=== PATIENT | male | born 1940 | race Asian ===

== ENCOUNTER 2017-06-12 22:22 | Inpatient (IN) | payer OTHER ==
[~2017-06-12] VITALS: Ht 162.6 cm; Wt 48.1 kg
[~2017-06-12 22:22] MED LIST: MOTRIN
[2017-06-12] MEDS ORDERED: SODIUM CHLORIDE 0.9% 1,000 ML IV ONE ×2 (23:05)
[2017-06-12] MEDS ORDERED: ONDANSETRON HCL 4MG/2ML VIAL IV STA ×2 (23:05)
[2017-06-12 23:34] LABS: BASOPHILS % 0.7 % (0.0-2.0); EOSINOPHILS % 4.1 % (0.0-5.0); HEMATOCRIT. 36.6 % (42.0-52.0); HEMOGLOBIN. 12.3 g/dL (14.0-18.0); LYMPHOCYTES % 14.4 % (20.0-50.0); MEAN CORPUSCULAR HEMOGLOBIN 31.2 pg (28.0-32.0); MEAN CORPUSCULAR VOLUME 92.5 fL (80.0-94.0); MEAN PLATELET VOLUME 8.3 fl (7.4-10.4); MONOCYTES % 7.4 % (2.0-8.0); NEUTROPHILS % 73.4 % (40.0-76.0); PLATELET 271 x1000/uL (130-400); RED BLOOD CELL COUNT 3.96 mill/uL (4.7-6.1); RED CELL DISTRIBUTION WIDTH 14.4 % (11.6-14.6)
[2017-06-12 23:39] LABS: INR 1.1
[2017-06-12 23:43] LABS: AMMONIA 24 uMol/L (<32)
[2017-06-12 23:48] LABS: CARBON DIOXIDE 23 mEq/L (21-32); CHLORIDE 115 mEq/L (98-107); ETHANOL BLOOD < 10 mg/dL; TROPONIN I 0.02 ng/mL (0.00-0.04)
[2017-06-12 23:53] LABS: BETA HYDROXYBUTYRATE 0.5 mMol/L (0.0-0.3)
[2017-06-12 23:53] LABS: BG BASE EXCESS -1.9 mmol/L (-2.0-2.0); BG CARBOXYHEMOGLOBIN 0.2 % (0.5-1.5); BG DEOXYHEMOGLOBIN 4.5 % (0.0-5.0); BG FRACTION INSPIRED OXYGEN 21; BG HCO3 ACT 22.5 mmol/L (22.0-26.0); BG METHEMOGLOBIN 0.3 % (0.0-1.5); BG OXYGEN SATURATION 95.5 % (92.0-98.5); BG PCO2 37.1 mmHg (35.0-45.0); BG PH 7.401 (7.350-7.450); BG PO2 80.4 mmHg (75.0-100.0); BG SAMPLE SITE LEFT RADIAL; BG TOTAL HEMOGLOBIN 12.6 g/dL (12.0-18.0); BG VENT MODE ROOM AIR
[2017-06-13 01:11] LABS: CLARITY URINE CLEAR (CLEAR); COLOR URINE YELLOW (YELLOW); GLUCOSE URINE NEGATIVE (NEGATIVE); KETONES URINE NEGATIVE (NEGATIVE); LEUKOCYTE ESTERASE URINE NEGATIVE (NEGATIVE); NITRITE URINE NEGATIVE (NEGATIVE); OCCULT BLOOD URINE 2+ (NEGATIVE); PH URINE 5.5 (4.5-8.0); PROTEIN URINE 2+ (NEGATIVE); SPECIFIC GRAVITY URINE 1.022 (1.005-1.030); UROBILINOGEN URINE 0.2 E.U./dL (0.2-1.0)
[2017-06-13 01:33] LABS: *AMPHETAMINES SCREEN URINE NEGATIVE (NEGATIVE); *BARBITURATES SCREEN URINE NEGATIVE (NEGATIVE); *BENZODIAZEPINES SCREEN URINE PRESUMTIVE POSITIVE (NEGATIVE); *COCAINE SCREEN URINE NEGATIVE (NEGATIVE); CANNABINOID URINE SCREEN NEGATIVE (NEGATIVE); METHADONE URINE SCREEN NEGATIVE (NEGATIVE); OPIATES URINE SCREEN NEGATIVE (NEGATIVE); PHENCYCLIDINE URINE SCREEN NEGATIVE (NEGATIVE)
[2017-06-13 05:00] VITALS: BP 112/64
[2017-06-13 06:00] VITALS: BP 112/64
[2017-06-13] MEDS ORDERED: ONDANSETRON HCL 4MG/2ML VIAL IV PRN (07:15)
[2017-06-13] MEDS: OMEPRAZOLE 20MG CAPSULE EXTENDED RELEASE PO SCH (07:15)
[2017-06-13 08:00] VITALS: BP 110/57
[2017-06-13] MEDS ORDERED: PNEUMOCOCCAL 23-VAL P-SAC VAC 0.5 ML IM ONE (08:15)
[2017-06-13] MEDS: ASPIRIN 325MG EC TABLET PO SCH (09:12)
[2017-06-13] MEDS: THIAMINE HCL 100MG TABLET PO SCH (09:42)
[2017-06-13] MEDS: FOLIC ACID 1MG TABLET PO SCH (09:42)
[2017-06-13] MEDS: MULTIVITAMINS,THER W-MINERALS TABLET PO SCH (09:42)
[2017-06-13 10:47] LABS: T4 FREE 0.88 ng/dL (0.76-1.46)
[2017-06-13 10:51] LABS: AMMONIA 14 uMol/L (<32)
[2017-06-13 11:35] LABS: VITAMIN B12 SERUM 475 pg/mL (211-911)
[2017-06-13 11:37] LABS: FOLIC ACID (FOLATE) SERUM > 20.00 ng/mL (>5.38)
[2017-06-13 12:00] VITALS: BP 101/59
[2017-06-13] MEDS: ENOXAPARIN 30MG/0.3ML SYR SUBCUT SCH (12:50)
[2017-06-13 15:16] LABS: HEPATITIS B SURFACE ANTIGEN NEGATIVE
[2017-06-13 15:44] LABS: HEPATITIS B CORE AB IGM NEGATIVE
[2017-06-13 15:46] LABS: HEPATITIS A AB IGM NEGATIVE (NEGATIVE)
[2017-06-13 16:00] VITALS: BP 102/70
[2017-06-13 20:00] VITALS: BP 105/51
[2017-06-13] MEDS: HYDROCODONE/ACETAMINOPHEN 10/325MG TABLET PO PRN (22:11)
[2017-06-14] VITALS: BP 111/63
[2017-06-14 04:00] VITALS: BP 93/57
[2017-06-14] MEDS: OMEPRAZOLE 20MG CAPSULE EXTENDED RELEASE PO SCH (06:10)
[2017-06-14] MEDS: ENOXAPARIN 30MG/0.3ML SYR SUBCUT SCH (08:08)
[2017-06-14] MEDS: ASPIRIN 325MG EC TABLET PO SCH (08:09)
[2017-06-14] MEDS: MULTIVITAMINS,THER W-MINERALS TABLET PO SCH (08:09)
[2017-06-14] MEDS: FOLIC ACID 1MG TABLET PO SCH (08:09)
[2017-06-14] MEDS: THIAMINE HCL 100MG TABLET PO SCH (08:09)
[2017-06-14 08:30] VITALS: BP 116/83
[2017-06-14] MEDS ORDERED: ENOXAPARIN 40MG/0.4ML SYR SUBCUT SCH (09:00)
[2017-06-14 12:00] VITALS: BP 84/43
[2017-06-14 16:00] VITALS: BP 113/65
[2017-06-14 20:00] VITALS: BP 98/52
[2017-06-15] VITALS: BP 91/56
[2017-06-15 04:00] VITALS: BP 113/60
[2017-06-15] MEDS: OMEPRAZOLE 20MG CAPSULE EXTENDED RELEASE PO SCH (06:20)
[2017-06-15 08:00] VITALS: BP 116/65
[2017-06-15] MEDS: MULTIVITAMINS,THER W-MINERALS TABLET PO SCH (08:06)
[2017-06-15] MEDS: ASPIRIN 325MG EC TABLET PO SCH (08:06)
[2017-06-15] MEDS: THIAMINE HCL 100MG TABLET PO SCH (08:06)
[2017-06-15] MEDS: ENOXAPARIN 30MG/0.3ML SYR SUBCUT SCH (08:06)
[2017-06-15] MEDS: FOLIC ACID 1MG TABLET PO SCH (08:06)
[2017-06-15 09:12] LABS: CARBON DIOXIDE 27 mEq/L (21-32); CHLORIDE 105 mEq/L (98-107)
[2017-06-15] MEDS: MUPIROCIN 2% OINT 22GM TOP SCH (09:13)
[2017-06-15 12:00] VITALS: BP 110/82
[2017-06-15 16:00] VITALS: BP 120/58
[2017-06-15 20:00] VITALS: BP 102/60
[2017-06-15] MEDS: ZOLPIDEM TARTRATE 5MG TABLET PO PRN (21:29)
[2017-06-16] VITALS: BP 99/55
[2017-06-16 04:00] VITALS: BP 100/54
[2017-06-16 05:29] LABS: BASOPHILS % 0.9 % (0.0-2.0); EOSINOPHILS % 6.5 % (0.0-5.0); HEMATOCRIT. 34.4 % (42.0-52.0); HEMOGLOBIN. 11.6 g/dL (14.0-18.0); LYMPHOCYTES % 21.5 % (20.0-50.0); MEAN CORPUSCULAR HEMOGLOBIN 31.2 pg (28.0-32.0); MEAN CORPUSCULAR VOLUME 92.4 fL (80.0-94.0); MEAN PLATELET VOLUME 8.8 fl (7.4-10.4); MONOCYTES % 8.2 % (2.0-8.0); NEUTROPHILS % 62.9 % (40.0-76.0); PLATELET 248 x1000/uL (130-400); RED BLOOD CELL COUNT 3.72 mill/uL (4.7-6.1); RED CELL DISTRIBUTION WIDTH 14.1 % (11.6-14.6)
[2017-06-16 06:19] LABS: CHLORIDE 103 mEq/L (98-107)
[2017-06-16 06:27] LABS: CARBON DIOXIDE 28 mEq/L (21-32)
[2017-06-16 08:30] VITALS: BP 107/55
[2017-06-16] MEDS ORDERED: FAMOTIDINE 20MG TABLET PO SCH (09:00)
[2017-06-16] MEDS: ASPIRIN 325MG EC TABLET PO SCH (09:22)
[2017-06-16] MEDS: FOLIC ACID 1MG TABLET PO SCH (09:22)
[2017-06-16] MEDS: MUPIROCIN 2% OINT 22GM TOP SCH (09:23)
[2017-06-16] MEDS: ENOXAPARIN 40MG/0.4ML SYR SUBCUT SCH (09:23)
[2017-06-16] MEDS: THIAMINE HCL 100MG TABLET PO SCH (09:23)
[2017-06-16] MEDS: MULTIVITAMINS,THER W-MINERALS TABLET PO SCH (09:23)
[2017-06-16 12:19] VITALS: BP 105/57
[2017-06-16 16:05] VITALS: BP 103/57
[2017-06-16 20:00] VITALS: BP 122/74
[2017-06-16] MEDS: ZOLPIDEM TARTRATE 5MG TABLET PO PRN (21:50)
[2017-06-16] MEDS: HYDROCODONE/ACETAMINOPHEN 10/325MG TABLET PO PRN (22:00)
[2017-06-17] VITALS (7 sets, daily range): BP systolic 99–114; BP diastolic 50–73
[2017-06-17] MEDS: ENOXAPARIN 40MG/0.4ML SYR SUBCUT SCH (09:15)
[2017-06-17] MEDS: MUPIROCIN 2% OINT 22GM TOP SCH (09:15)
[2017-06-17] MEDS: MULTIVITAMINS,THER W-MINERALS TABLET PO SCH (09:15)
[2017-06-17] MEDS: ASPIRIN 81MG EC TABLET PO SCH (09:15)
[2017-06-17] MEDS: FOLIC ACID 1MG TABLET PO SCH (09:15)
[2017-06-17] MEDS: FAMOTIDINE 20MG TABLET PO SCH (09:15)
[2017-06-17] MEDS: THIAMINE HCL 100MG TABLET PO SCH (09:15)
[2017-06-17] MEDS: ZOLPIDEM TARTRATE 5MG TABLET PO PRN (21:45)
[2017-06-18] VITALS: BP 112/62
[2017-06-18 04:00] VITALS: BP 109/60
[2017-06-18 08:00] VITALS: BP 96/58
[2017-06-18] MEDS: FAMOTIDINE 20MG TABLET PO SCH (09:06)
[2017-06-18] MEDS: FOLIC ACID 1MG TABLET PO SCH (09:06)
[2017-06-18] MEDS: MULTIVITAMINS,THER W-MINERALS TABLET PO SCH (09:06)
[2017-06-18] MEDS: THIAMINE HCL 100MG TABLET PO SCH (09:06)
[2017-06-18] MEDS: ASPIRIN 81MG EC TABLET PO SCH (09:06)
[2017-06-18] MEDS: MUPIROCIN 2% OINT 22GM TOP SCH (09:08)
[2017-06-18] MEDS: ENOXAPARIN 40MG/0.4ML SYR SUBCUT SCH (11:18)
[2017-06-18] MEDS ORDERED: THIA100T72 PO (11:26)
[2017-06-18] MEDS ORDERED: Multivitamins,Ther W-Minerals PO (11:26)
[2017-06-18] MEDS ORDERED: FOLI-43 PO (11:26)
[2017-06-18 12:00] VITALS: BP 108/68
[2017-06-18 14:14] VITALS: BP 119/68
[2017-06-18 16:00] VITALS: BP 115/65
== END 2017-06-18 16:15 | disposition home or self-care (01) | DRG 91 ==
LOC: ER 22:52 → EDBEDREQTM 06-13 01:42 → 5WST 06-13 01:42 → EDBEDREQ 06-13 01:42 → ENRESERV 06-13 04:18
PROVIDERS: ADMIT Internal Medicine; ATTEND Internal Medicine
DX: G92 Toxic encephalopathy (principal); E43 Unspecified severe protein-calorie malnutrition; N17.9 Acute kidney failure, unspecified; N39.0 Urinary tract infection, site not specified; Z68.1 Body mass index [BMI] 19.9 or less, adult; E86.0 Dehydration; R62.7 Adult failure to thrive; D64.9 Anemia, unspecified; F17.210 Nicotine dependence, cigarettes, uncomplicated; G89.29 Other chronic pain; H70.91 Unspecified mastoiditis, right ear; H91.91 Unspecified hearing loss, right ear; I10 Essential (primary) hypertension; K80.20 Calculus of gallbladder without cholecystitis without obstruction; W06.XXXA Fall from bed, initial encounter; M54.5 Low back pain; M25.552 Pain in left hip; F03.90 Unspecified dementia, unspecified severity, without behavioral disturbance, psychotic disturbance, mood disturbance, and anxiety; I95.9 Hypotension, unspecified; R00.1 Bradycardia, unspecified; Z86.61 Personal history of infections of the central nervous system
CPT/HCPCS: 36415; 36600; 70450; 70551; 71010; 73552; 76700; 76881; 80048; 80053; 80305; 80307; 80329; 81001; 82010; 82140; 82375; 82607; 82746; 82805; 83036; 83605; 84439; 84443; 84481; 84484; 85025; 85610; 86703; 86705; 86709; 86803; 87040; 87086; 87340; 90732; 93005; 93306; 96361; 96374; 97116; 97162; 99291; G0482; J1650; J2405; J7030

== ENCOUNTER 2018-01-21 17:12 | Emergency (ER) | payer MEDICARE, MEDICAID ==
[~2018-01-21] VITALS: Ht 165.1 cm; Wt 60.0 kg
[~2018-01-21 17:12] MED LIST changes: +FOLI-43 PO; -MOTRIN; +Multivitamins,Ther W-Minerals PO; +THIA100T72 PO
[2018-01-21] MEDS ORDERED: IBUPROFEN 600MG TABLET PO ONE (22:00)
[2018-01-22 00:30] VITALS: BP 123/89
== END 2018-01-22 00:49 | disposition home or self-care (01) ==
LOC: ER 17:54
DX: M54.5 Low back pain (principal); I10 Essential (primary) hypertension; W10.8XXA Fall (on) (from) other stairs and steps, initial encounter; Y93.89 Activity, other specified; Y92.89 Other specified places as the place of occurrence of the external cause; Y99.8 Other external cause status
CPT/HCPCS: 36415; 71045; 72100; 72131; 80053; 80307; 80329; 82140; 83690; 83880; 85025; 85610; 93005; 99285; G0482; 99284

== ENCOUNTER 2018-01-22 05:13 | Emergency (ER) | payer MEDICARE, MEDICAID ==
[2018-01-22] MEDS ORDERED: IBUPROFEN 600MG TABLET PO STA (09:08)
[2018-01-22 09:32] LABS: BASOPHILS % 0.8 % (0.0-2.0); EOSINOPHILS % 0.7 % (0.0-5.0); HEMATOCRIT. 35.1 % (42.0-52.0); HEMOGLOBIN. 12.2 g/dL (14.0-18.0); LYMPHOCYTES % 8.2 % (20.0-50.0); MEAN CORPUSCULAR HEMOGLOBIN 31.9 pg (28.0-32.0); MEAN PLATELET VOLUME 7.6 fl (7.4-10.4); MONOCYTES % 5.6 % (2.0-8.0); NEUTROPHILS % 84.7 % (40.0-76.0); PLATELET 353 x1000/uL (130-400); RED BLOOD CELL COUNT 3.82 mill/uL (4.7-6.1); RED CELL DISTRIBUTION WIDTH 13.8 % (11.6-14.6)
[2018-01-22 09:36] LABS: CHLORIDE 102 mEq/L (98-107)
[2018-01-22 09:42] LABS: PROTHROMBIN TIME 10.9 sec (9.4-11.6)
[2018-01-22 09:52] LABS: AMMONIA < 25 uMol/L (<32)
[2018-01-22 10:05] LABS: ETHANOL BLOOD < 10 mg/dL
[2018-01-22 13:49] VITALS: BP 123/68
== END 2018-01-22 13:50 | disposition home or self-care (01) ==
LOC: ER 05:13
DX: M54.5 Low back pain (principal); I10 Essential (primary) hypertension; R79.1 Abnormal coagulation profile
CPT/HCPCS: 36415; 71045; 72100; 80053; 80307; 80329; 82140; 83690; 83880; 85025; 85610; 93005; 99285; G0482

== ENCOUNTER 2018-01-23 18:40 | Emergency (ER) | payer MEDICARE, MEDICAID ==
[~2018-01-23] VITALS: Ht 162.6 cm; Wt 53.2 kg
[2018-01-24 03:17] VITALS: BP 112/68
[2018-01-24] MEDS ORDERED: ACETAMINOPHEN 325MG TABLET PO ONE (03:45)
== END 2018-01-24 04:06 | disposition home or self-care (01) ==
LOC: ER 21:07
DX: S80.02XA Contusion of left knee, initial encounter (principal); M54.5 Low back pain; F17.200 Nicotine dependence, unspecified, uncomplicated; G47.00 Insomnia, unspecified; W01.0XXA Fall on same level from slipping, tripping and stumbling without subsequent striking against object, initial encounter; Y93.89 Activity, other specified; Y99.8 Other external cause status; Y92.89 Other specified places as the place of occurrence of the external cause
CPT/HCPCS: 72170; 73562; 99284

== ENCOUNTER 2018-09-05 16:18 | Inpatient (IN) | payer MEDICARE, MEDICAID ==
[~2018-09-05] VITALS: Ht 162.6 cm; Wt 43.1 kg
[2018-09-05 22:15] LABS: CLARITY URINE CLOUDY (CLEAR); COLOR URINE YELLOW (YELLOW); KETONES URINE NEGATIVE (NEGATIVE); LEUKOCYTE ESTERASE URINE 3+ (NEGATIVE); NITRITE URINE POSITIVE (NEGATIVE); OCCULT BLOOD URINE 1+ (NEGATIVE); PROTEIN URINE NEGATIVE (NEGATIVE); SPECIFIC GRAVITY URINE 1.012 (1.005-1.030); UROBILINOGEN URINE 0.2 E.U./dL (0.2-1.0)
[2018-09-05 22:31] LABS: *AMPHETAMINES SCREEN URINE NEGATIVE (NEGATIVE); *COCAINE SCREEN URINE NEGATIVE (NEGATIVE)
[2018-09-05 22:33] LABS: *BARBITURATES SCREEN URINE NEGATIVE (NEGATIVE); *BENZODIAZEPINES SCREEN URINE NEGATIVE (NEGATIVE); CANNABINOID URINE SCREEN NEGATIVE (NEGATIVE); METHADONE URINE SCREEN NEGATIVE (NEGATIVE); OPIATES URINE SCREEN PRESUMTIVE POSITIVE (NEGATIVE); PHENCYCLIDINE URINE SCREEN NEGATIVE (NEGATIVE)
[2018-09-06 02:31] LABS: BASOPHILS % 0.7 % (0.0-2.0); EOSINOPHILS % 0.8 % (0.0-5.0); HEMOGLOBIN. 11.2 g/dL (14.0-18.0); MEAN CORPUSCULAR HEMOGLOBIN 29.1 pg (28.0-32.0); MEAN CORPUSCULAR VOLUME 85.8 fL (80.0-94.0); MEAN PLATELET VOLUME 6.9 fl (7.4-10.4); MONOCYTES % 5.4 % (2.0-8.0); NEUTROPHILS % 79.1 % (40.0-76.0); PLATELET 670 x1000/uL (130-400); RED BLOOD CELL COUNT 3.84 mill/uL (4.7-6.1); RED CELL DISTRIBUTION WIDTH 14.9 % (11.6-14.6)
[2018-09-06 02:39] LABS: CHLORIDE 97 mEq/L (98-107)
[2018-09-06 02:41] LABS: AMMONIA < 10 uMol/L (<32)
[2018-09-06] MEDS ORDERED: ONDANSETRON HCL 4MG/2ML INJ IV PRN (09:45)
[2018-09-06] MEDS ORDERED: DOCUSATE SODIUM 100MG CAPSULE PO PRN (09:45)
[2018-09-06] MEDS ORDERED: ACETAMINOPHEN 325MG TABLET PO PRN (09:45)
[2018-09-06] MEDS ORDERED: ENOXAPARIN 40MG/0.4ML SYR SUBCUT NR (10:30)
[2018-09-06] MEDS: AMLODIPINE 10MG TABLET PO SCH (10:30)
[2018-09-06 13:00] VITALS: BP 112/63
[2018-09-06 13:50] VITALS: BP 112/63
[2018-09-06 16:00] VITALS: BP 96/66
[2018-09-06] MEDS: HYDROCODONE/ACETAMINOPHEN 5/325MG TABLET PO PRN (17:07)
[2018-09-06 20:00] VITALS: BP 104/56
[2018-09-07] VITALS: BP 122/74
[2018-09-07 04:00] VITALS: BP 109/64
[2018-09-07 06:19] LABS: BASOPHILS % 0.7 % (0.0-2.0); HEMATOCRIT. 27.4 % (42.0-52.0); HEMOGLOBIN. 9.2 g/dL (14.0-18.0); LYMPHOCYTES % 17.7 % (20.0-50.0); MEAN CORPUSCULAR HEMOGLOBIN 29.2 pg (28.0-32.0); MEAN CORPUSCULAR VOLUME 86.5 fL (80.0-94.0); MEAN PLATELET VOLUME 7.2 fl (7.4-10.4); MONOCYTES % 6.9 % (2.0-8.0); NEUTROPHILS % 73.7 % (40.0-76.0); PLATELET 573 x1000/uL (130-400); RED BLOOD CELL COUNT 3.16 mill/uL (4.7-6.1); RED CELL DISTRIBUTION WIDTH 14.8 % (11.6-14.6)
[2018-09-07 06:40] LABS: CHLORIDE 101 mEq/L (98-107)
[2018-09-07 08:00] VITALS: BP 103/56
[2018-09-07] MEDS: AMLODIPINE 10MG TABLET PO SCH (09:06)
[2018-09-07] MEDS: ENOXAPARIN 40MG/0.4ML SYR SUBCUT SCH (09:07)
[2018-09-07 12:00] VITALS: BP 100/60
[2018-09-07] MEDS ORDERED: LEVOFLOXACIN 500MG PREMIX 100 ML IV NR (14:30)
[2018-09-07 16:00] VITALS: BP 114/61
[2018-09-07] MEDS: HYDROCODONE/ACETAMINOPHEN 5/325MG TABLET PO PRN (17:30)
[2018-09-07 20:00] VITALS: BP 107/61
[2018-09-08] VITALS: BP 127/82
[2018-09-08] MEDS: LORAZEPAM 2MG/ML CPJ IV PRN ×2 (00:40→21:48)
[2018-09-08 04:00] VITALS: BP 104/59
[2018-09-08 08:00] VITALS: BP 94/51
[2018-09-08] MEDS: AMLODIPINE 10MG TABLET PO SCH (08:56)
[2018-09-08] MEDS: ENOXAPARIN 40MG/0.4ML SYR SUBCUT SCH (08:57)
[2018-09-08 12:00] VITALS: BP 122/61
[2018-09-08] MEDS: HYDROCODONE/ACETAMINOPHEN 5/325MG TABLET PO PRN ×2 (13:44→21:49)
[2018-09-08] MEDS ORDERED: LEVOFLOXACIN 250MG PREMIX 50 ML IV SCH (15:00)
[2018-09-08 16:00] VITALS: BP 112/56
[2018-09-08] MEDS ORDERED: AMIKACIN SULFATE 250 MG in SODIUM CHLORIDE 0.9% 100 ML IV SCH (16:00)
[2018-09-08 20:00] VITALS: BP 116/65
[2018-09-09] VITALS: BP 119/61
[2018-09-09] MEDS: AMIKACIN SULFATE 250 MG in SODIUM CHLORIDE 0.9% 100 ML IV SCH ×2 (01:11→13:59)
[2018-09-09 04:00] VITALS: BP 119/61
[2018-09-09 08:00] VITALS: BP 110/66
[2018-09-09] MEDS: ENOXAPARIN 40MG/0.4ML SYR SUBCUT SCH (09:48)
[2018-09-09] MEDS: AMLODIPINE 10MG TABLET PO SCH (09:48)
[2018-09-09 12:00] VITALS: BP 109/88
[2018-09-09] MEDS: HYDROCODONE/ACETAMINOPHEN 5/325MG TABLET PO PRN ×2 (15:07→21:51)
[2018-09-09 16:00] VITALS: BP 108/68
[2018-09-09 20:00] VITALS: BP 107/70
[2018-09-10] VITALS: BP 129/73
[2018-09-10] MEDS: AMIKACIN SULFATE 250 MG in SODIUM CHLORIDE 0.9% 100 ML IV SCH ×2 (02:38→13:13)
[2018-09-10 04:00] VITALS: BP 118/73
[2018-09-10 07:11] LABS: BASOPHILS % 0.7 % (0.0-2.0); EOSINOPHILS % 1.1 % (0.0-5.0); HEMOGLOBIN. 9.6 g/dL (14.0-18.0); LYMPHOCYTES % 17.1 % (20.0-50.0); MEAN CORPUSCULAR HEMOGLOBIN 28.7 pg (28.0-32.0); MEAN CORPUSCULAR VOLUME 87.1 fL (80.0-94.0); MEAN PLATELET VOLUME 7.1 fl (7.4-10.4); MONOCYTES % 5.8 % (2.0-8.0); NEUTROPHILS % 75.3 % (40.0-76.0); PLATELET 654 x1000/uL (130-400); RED BLOOD CELL COUNT 3.34 mill/uL (4.7-6.1); RED CELL DISTRIBUTION WIDTH 14.7 % (11.6-14.6)
[2018-09-10 07:18] LABS: CHLORIDE 103 mEq/L (98-107)
[2018-09-10 08:00] VITALS: BP 124/70
[2018-09-10] MEDS: ENOXAPARIN 40MG/0.4ML SYR SUBCUT SCH (09:50)
[2018-09-10] MEDS: AMLODIPINE 10MG TABLET PO SCH (09:50)
[2018-09-10] MEDS ORDERED: LACTULOSE 20G/30ML UDC PO SCH (11:30)
[2018-09-10] MEDS ORDERED: ASCORBIC ACID 250 MG TABLET PO SCH (11:30)
[2018-09-10] MEDS ORDERED: MULTIVITAMINS,THER W-MINERALS TABLET PO SCH (11:30)
[2018-09-10] MEDS ORDERED: ZINC SULFATE 220 MG ( 50 ) CAPSULE PO SCH (11:30)
[2018-09-10] MEDS ORDERED: POLYETHYLENE GLYCOL 3350 (17GM) 1 DOSE PACK PO SCH (11:30)
[2018-09-10] MEDS: LORAZEPAM 2MG/ML CPJ IV PRN (11:50)
[2018-09-10 12:00] VITALS: BP 148/72
[2018-09-10] MEDS ORDERED: SULFAMETHOXAZOLE/TRIMETHOPRIM 800/160MG TABLET PO SCH (12:00)
[2018-09-10 15:43] VITALS: BP 148/72
[2018-09-10 16:00] VITALS: BP 110/64
== END 2018-09-10 17:26 | DRG 919 ==
LOC: ER 16:18 → 6EST 09-06 02:07 → EDBEDREQTM 09-06 02:11 → EDBEDREQ 09-06 02:11 → EDBEDREQSVC 09-06 08:23 → ENRESERV 09-06 12:00
PROVIDERS: ADMIT Hospitalist; ATTEND Hospitalist
DX: T81.31XA Disruption of external operation (surgical) wound, not elsewhere classified, initial encounter (principal); E43 Unspecified severe protein-calorie malnutrition; N39.0 Urinary tract infection, site not specified; Z68.1 Body mass index [BMI] 19.9 or less, adult; B96.20 Unspecified Escherichia coli [E. coli] as the cause of diseases classified elsewhere; F03.90 Unspecified dementia, unspecified severity, without behavioral disturbance, psychotic disturbance, mood disturbance, and anxiety; I50.9 Heart failure, unspecified; I11.0 Hypertensive heart disease with heart failure; K21.9 Gastro-esophageal reflux disease without esophagitis; M41.9 Scoliosis, unspecified; M17.12 Unilateral primary osteoarthritis, left knee; F41.9 Anxiety disorder, unspecified; M24.569 Contracture, unspecified knee; Y83.8 Other surgical procedures as the cause of abnormal reaction of the patient, or of later complication, without mention of misadventure at the time of the procedure; Y92.89 Other specified places as the place of occurrence of the external cause; Z91.81 History of falling; Z79.899 Other long term (current) drug therapy
CPT/HCPCS: 36415; 71045; 72100; 73560; 80048; 80150; 80305; 82140; 83735; 83880; 84134; 84484; 87077; 87186; 93005; 93970; 96372; 99285; J0278; J1650; J1956; J2060; J7050; A4315